=== PATIENT | male | born 1955 | race Caucasian/White ===

== ENCOUNTER 2018-04-01 17:11 | Emergency (ER) | payer OTHER, SELFPAY ==
[2018-04-01 17:12] VITALS: BP 157/91; PULSE 51; RESP 17; TEMP 36.2; O2SAT 98; BMI 25.8
--- NOTE | 2018-04-01 17:30 | RAD_ITS ---
STUDY: X-RAY - RIGHT SHOULDER REASON FOR EXAM: Male, 62 years old. Fall. Pain. TECHNIQUE: 2 view(s) of the shoulder. COMPARISON: None. FINDINGS: Normal glenohumeral articulation. Normal acromioclavicular joint. Normal acromion. Normal humeral head and visualized proximal humerus. There is periarticular soft tissue calcification consistent with a calcific tendinitis. There is no demonstrated fracture. Normal visualized pulmonary apex. RAD/Shoulder min 2 Views IMPRESSION: No acute abnormality. Calcific tendinitis. Electronically Signed: Antonio Crespo MD at 18:00 EST , Service support ,
--- NOTE | 2018-04-01 17:45 | RAD_ITS ---
STUDY: X-RAY - RIGHT ELBOW REASON FOR EXAM: Male, 62 years old. Fall. Right arm pain. TECHNIQUE: 3 view(s) of the elbow. COMPARISON: None. FINDINGS: Technically Limited examination-no true lateral view. No gross fracture or dislocation. Effusion cannot be excluded. No gross arthrosis. RAD/Elbow min 3 Views IMPRESSION: Limited by the absence of a true lateral view. No gross fracture or dislocation seen. Electronically Signed: Antonio Crespo MD at 18:02 EST , Service support ,
--- NOTE | 2018-04-01 19:03 | ED.DCSUM_ITS ---
- ER Visit Summary Date of Service: 04/01/18 Chief Complaint: Fall History of Present Illness: The patient is a 62 M presenting for evaluation secondary to a fall. Patient reports that he suffered a mechanical fall in the parking lot today where he landed on his elbow and struck his face against the ground. Denies loss of consciousness. Patient is not on any sort of anticoagulants. Denies any visual changes numbness weakness nausea or vomiting. He complains of pain in his right elbow and right shoulder. Review of systems otherwise negative. Physical Examination: Primary survey: Airway is patent, breath sounds equal bilateral, central peripheral pulses 2+ and symmetric, GCS 15 out of 15. Vitals within normal limits. Secondary survey: General: Well-nourished well-developed no acute distress Head: Normocephalic atraumatic Eyes: PERRLA, EOMI ENT: TMs clear no hemotympanum no drainage Neck: Nontender full range of motion, no step-offs noted Heart: Regular rate and rhythm no murmurs Lungs: Respirations nondistressed, lung sounds clear to auscultation bilaterally, chest nontender, normal chest excursion bilaterally Abdomen: Soft nontender nondistended normal bowel sounds no palpable abdominal masses Back: Nontender no step-offs noted Extremities: Skin tear noted on the right elbow with a mild amount of swelling. Normal range of motion of the elbow. Distal pulses normal distal sensation. No pain with palpation of the shoulder, but pain with range of motion of the right shoulder. No evidence of laxity of the rotator cuff. No significant joint effusion noted. Skin: Normal color no trauma Neuro: Alert and oriented ?4, GCS 15 out of 15, no lateralizing neurological deficits. Test Results: Right shoulder and elbow x-rays were found to be negative Emergency Department Course and Treatment: Patient presented secondary to a skin tear and a elbow and shoulder injury. Skin tear does not require laceration repair. This was dressed. Patient's tetanus is up-to-date already. X-rays are negative. Patient was placed in a sling for comfort, and was recommended on range of motion exercises and NSAIDs for pain Disposition: Discharge Impression: 1. Right shoulder strain 2. Right elbow skin tear This note was generated with [employer] dictation software. It may contain incorrect words, spelling, and punctuation that were not noted in review of the chart prior to signing ED Disposition - Plan for ED Patient: Disposition: Home or Assisted Living Chief Complaint: Upper Extremity Injury Diagnosis: Right shoulder strain Instructions: ED Sprain Shoulder Referrals: [facility]YSIC[facility]ANS] - As Needed
== END 2018-04-01 19:05 | disposition home or self-care (01) ==
PROVIDERS: Emergency Provider Emergency Medicine; Family Provider Family Medicine; PCP Family Medicine
DX: S46.911A Strain of unspecified muscle, fascia and tendon at shoulder and upper arm level, right arm, initial encounter (principal); S51.011A Laceration without foreign body of right elbow, initial encounter; Y92.481 Parking lot as the place of occurrence of the external cause; W18.30XA Fall on same level, unspecified, initial encounter; Y99.9 Unspecified external cause status; K21.9 Gastro-esophageal reflux disease without esophagitis
CPT/HCPCS: 73030; 73080; 99283

== ENCOUNTER → 2018-05-25 15:57 | Outpatient (CLI) | payer OTHER, SELFPAY ==
--- NOTE | 2018-05-25 16:02 | EKG12_ITS ---
Test Reason : PREOP Blood Pressure : / mmHG Vent. Rate : 057 BPM Atrial Rate : 057 BPM P-R Int : 156 ms QRS Dur : 080 ms QT Int : 442 ms P-R-T Axes : 044 -08 038 degrees QTc Int : 430 ms Sinus bradycardia Minimal voltage criteria for LVH, may be normal variant Borderline ECG Confirmed by DARIANA MEDINA, LEON ([id number]), technical writer and editor PASTOR PEARCE ([id number]) on 05/27/2018 3:38:19 PM Referred By: Prudence Gomes Confirmed By:LEON WESTBROOK MD
== END ==
PROVIDERS: Family Provider Family Medicine; PCP Family Medicine; Referring Provider Physician Assistant; Visit Provider Physician Assistant
DX: Z01.810 Encounter for preprocedural cardiovascular examination (principal)
CPT/HCPCS: 93005

== ENCOUNTER 2018-08-26 11:23 | Emergency (ER) | payer OTHER, SELFPAY ==
[2018-08-26 11:24] VITALS: BP 138/91; PULSE 66; RESP 20; TEMP 36.6; O2SAT 99; BMI 25.8
--- NOTE | 2018-08-26 11:44 | EKG12_ITS ---
Test Reason : CHEST OTHER Blood Pressure : / mmHG Vent. Rate : 057 BPM Atrial Rate : 057 BPM P-R Int : 148 ms QRS Dur : 074 ms QT Int : 444 ms P-R-T Axes : 024 -11 029 degrees QTc Int : 432 ms Sinus bradycardia Minimal voltage criteria for LVH, may be normal variant Borderline ECG Confirmed by DARIANA MEDINA, LEON ([id number]), magazine editor MYNOR PRAKASH ([id number]) on 08/30/2018 1:37:41 PM Referred By: CAIT Confirmed By:LEON WESTBROOK MD
--- NOTE | 2018-08-26 11:45 | CT_ITS ---
STUDY: CTA CHEST REASON FOR EXAM: Male, 63 years old. Left-sided chest pain RADIATION DOSAGE (If Supplied By Facility): CTDIvol = ( 10.42 ) mGy, DLP = ( 509.93 ) mGycm TECHNIQUE: The examination was performed with the intravenous administration of 75mL IV Isovue 370. Post-processing of the angiographic images was performed, with multiplanar reformation and 3D reconstruction. Individualized dose optimization techniques were used for this CT. COMPARISON: None. FINDINGS: Normal enhancement of the main pulmonary artery and right and left pulmonary arteries. Normal enhancement of the bilateral peripheral pulmonary arteries. There is no demonstrated pulmonary embolism. Normal thoracic aorta and visualized great vessels. There is no demonstrated aortic dissection. Normal heart and pericardium. Normal mediastinum. Normal hilar regions. Normal visualized trachea and bronchi. The lungs are well expanded. Normal pulmonary parenchyma. Normal pleura. Normal chest wall structures. There are degenerative changes of thoracic spine. Normal visualized upper abdomen. CT/CTA Chest W/WO Contrast IMPRESSION: Normal CTA chest examination, without a demonstrated pulmonary embolism or arterial dissection. Electronically Signed: Jas Lima DO at 13:15 EDT Tel , Service support ,
[2018-08-26 12:17] LABS: Absolute Lymphocyte Count 1.23 X10^3/ul (0.83-4.51); Absolute Neutrophil Count 3.9 X10^3/uL (2.0-7.7); Basophil# 0.03 X10^3/uL; Basophil% 0.5 % (0-1); Eosinophil# 0.08 X10^3/uL; Eosinophils% 1.4 % (0-5); Hematocrit 42.2 % (40-54); Hemoglobin 14.4 g/dl (13.0-16.5); Lymphocyte # 1.23 X10^3/ul (4.0); Lymphocyte % 21.8 % (19-41); Mean Corp Hgb Conc 34.1 g/gl (32-36); Mean Corpuscular Hgb 31.9 pg (27.0-32.0); Mean Corpuscular Volume 93.4 fL (80-94); Mean Platelet Vol. 9.5 fl (6.2-12.0); Monocyte# 0.38 X10^3/uL; Monocyte% 6.7 % (0-10); Neutrophil # 3.91 X10^3/uL (2.7-7.7); Neutrophil % 69.4 % (47-70); Platelet Count 217 K/mm3 (150-450); RBC Distribution Width CV 12.9 % (11.6-14.6); RBC Distribution Width SD 43.8 fl (35.1-43.9); Red Blood Count 4.52 M/mm3 (4.6-6.2); White Blood Count 5.6 K/mm3 (4.4-11.0)
[2018-08-26 12:18] LABS: POSITIVE COUNT NO; POSITIVE DIFFERENTIAL NO; POSITIVE MORPHOLOGY NO
[2018-08-26 12:20] LABS: Prothrombin Time (Protime)PT. 12.8 SECONDS (11.7-14.9)
[2018-08-26] MEDS: Morphine 4 MG/ML Syringe IV (12:20)
[2018-08-26] MEDS: Ondansetron 4 MG/2 ML Vial IV (12:20)
[2018-08-26 12:28] LABS: Anion Gap 5 (5-15); BUN 17 mg/dL (7-18); BUN/Creat Ratio 19.3 RATIO (10-20); Calcium,Total 8.7 mg/dL (8.5-10.1); Chloride 108 mmol/L (98-107); Creatinine, Serum 0.88 mg/dL (0.70-1.30); EST Glomerular Filtration Rate 92 mL/min (>60); Est Glom Filt Rate - Afr Amer 112 mL/min (>60); Estimated Creatinine Clearance 82.05 ml/min; Glucose 96 mg/dL (74-106); Potassium 4.2 mmol/L (3.5-5.1); Sodium Level 139 mmol/L (136-145)
--- NOTE | 2018-08-26 13:33 | ED.VISSUMM ---
- ER Visit Summary Date of Service: 08/26/18 Chief Complaint: Chest pain History of Present Illness: The patient is a 63 M who presents with chest pain. Is been present for 3 days. He complains of sharp left lower chest pain. This is worse with breathing palpation coughing or hiccups. He denies shortness of breath. No fevers nausea or vomiting. He did have rotator cuff surgery 11 weeks ago. He denies other medical history. Physical Examination: Afebrile vitals normal Moist mucous membranes Heart regular rate and rhythm Lungs are clear he does have left lower lateral chest tenderness Abdomen soft Alert Test Results: EKG shows sinus rhythm at a rate of 57. CBC BMP unremarkable. Troponin negative. INR normal at 1.0. CTA of the chest is normal. Emergency Department Course and Treatment: Given patient's history of rotator cuff surgery within the last few months and sharp pleuritic chest pain my big concern was for pulmonary embolism. CTA as above is negative. His labs are otherwise unremarkable and he has normal vitals. Therefore this most likely chest wall pain. He was advised on supportive care. He was discharged. Treatment Plan: [] Disposition: Discharge Impression: Chest wall pain This note was generated with [employer] dictation software. It may contain incorrect words, spelling, and punctuation that were not noted in review of the chart prior to signing ED Disposition - Plan for ED Patient: Referrals: Iglesia Chun MD [Primary Care Provider] -
--- NOTE | 2018-08-26 13:35 | ED.DEP ---
ED Disposition - Plan for ED Patient: Instructions: ED Chest Pain Atypical Unkn Cause Referrals: Iglesia Chun MD [Primary Care Provider] -
[2018-08-26 13:49] VITALS: BP 121/73; PULSE 61; RESP 18; O2SAT 100
== END 2018-08-26 13:53 | disposition home or self-care (01) ==
PROVIDERS: Emergency Provider Emergency Medicine; Family Provider Family Medicine; PCP Family Medicine
DX: R07.89 Other chest pain (principal)
CPT/HCPCS: 71275; 80048; 84484; 85025; 85610; 93005; 96374; 96375; 99284; Q9967; A4216; J2405

== ENCOUNTER → 2019-04-29 07:52 | Outpatient (CLI) | payer OTHER, SELFPAY ==
--- NOTE | 2019-04-29 08:03 | MRI_ITS ---
STUDY: MRI BRAIN WITH AND WITHOUT CONTRAST REASON FOR EXAM: Male, 63 years old. Tinnitus, HEADACHES TECHNIQUE: Standardized multiplanar fat and water weighted pulse sequences were obtained. IV 15 DOTAREM was administered for the contrast portion of the examination. COMPARISON: None. FINDINGS: There is no intracranial mass, mass effect or midline shift. No enhancing lesion. No obvious hemorrhage. No territorial infarct or acute ischemia. Normal size of the ventricles and extra-axial spaces for the patient''s age. Normal white matter tracts of the supratentorial brain. There is no extra-axial fluid accumulation. There is no enhancing intra-axial or extra-axial abnormality. Normal sella turcica, pituitary gland, infundibular stalk, optic chiasm and hypothalamus. Normal basal cisterns. Normal bilateral temporal bones. Normal bilateral internal auditory canals. No demonstrated orbital abnormality, within the constraints of a routine brain study. Normal visualized paranasal sinuses. Normal calvarium and skull base. Normal visualized soft tissue structures. MRI/Brain W/WO Contrast IMPRESSION: Normal unenhanced and enhanced MRI of the brain. Electronically Signed: Elina Singletary MD at 21:10 EST Tel , Service support ,
[2019-04-29 11:55] LABS: EGFR FINGERSTICK > 60.0000 mL/min (>60)
== END ==
PROVIDERS: Family Provider Family Medicine; PCP Family Medicine; Referring Provider Otolaryngology; Visit Provider Otolaryngology
DX: H93.19 Tinnitus, unspecified ear (principal); R51 Headache
CPT/HCPCS: 70553; A9575

== ENCOUNTER → 2020-04-03 08:21 | Outpatient (CLI) | payer MEDICARE, OTHER, SELFPAY ==
--- NOTE | 2020-04-03 08:25 | EKG12_ITS ---
Test Reason : PRE OP Blood Pressure : / mmHG Vent. Rate : 070 BPM Atrial Rate : 070 BPM P-R Int : 146 ms QRS Dur : 072 ms QT Int : 402 ms P-R-T Axes : 054 008 065 degrees QTc Int : 434 ms Normal sinus rhythm Normal ECG Confirmed by CESAR MEDINA, JULIO ([id number]), editor & co founder MYNOR PRAKASH ([id number]) on 04/04/2020 11:20:38 AM Referred By: Bandar Norwood Confirmed By:JULIO GUERRERO MD
[2020-04-03 09:15] LABS: Hematocrit 40.4 % (40-54); Hemoglobin 13.4 g/dL (13.0-16.5); Mean Corp Hgb Conc 33.2 g/dL (32-36); Mean Corpuscular Hgb 31.8 pg (27.0-32.0); Mean Corpuscular Volume 95.7 fL (80-94); Mean Platelet Vol. 9.8 fl (6.2-12.0); Platelet Count 215 K/mm3 (150-450); RBC Distribution Width CV 12.6 % (11.6-14.6); Red Blood Count 4.22 M/mm3 (4.6-6.2); White Blood Count 4.6 K/mm3 (4.4-11.0)
[2020-04-03 09:44] LABS: Anion Gap 5 (5-15); BUN 16 mg/dL (7-18); BUN/Creat Ratio 16.1 RATIO (10-20); Calcium,Total 9.1 mg/dL (8.5-10.1); Chloride 108 mmol/L (98-107); EST Glomerular Filtration Rate 80 mL/min (>60); Est Glom Filt Rate - Afr Amer 97 mL/min (>60); Glucose 113 mg/dL (74-106); Potassium 4.1 mmol/L (3.5-5.1); Sodium Level 140 mmol/L (136-145)
== END ==
PROVIDERS: PCP Family Medicine; Referring Provider Orthopaedic Surgery; Visit Provider Orthopaedic Surgery
DX: Z01.818 Encounter for other preprocedural examination (principal); I10 Essential (primary) hypertension; Z79.899 Other long term (current) drug therapy; Z11.59 Encounter for screening for other viral diseases
CPT/HCPCS: 36415; 80048; 85027; 87635; 93005; C9803; U0003

== ENCOUNTER → 2020-04-05 08:01 | Outpatient (CLI) | payer MEDICARE, OTHER, SELFPAY ==
[2020-04-05 08:59] LABS: Glucose 107 mg/dL (74-106)
== END ==
PROVIDERS: PCP Family Medicine; Referring Provider Orthopaedic Surgery; Visit Provider Orthopaedic Surgery
DX: Z01.818 Encounter for other preprocedural examination (principal); R73.01 Impaired fasting glucose
CPT/HCPCS: 36415; 82947

== ENCOUNTER 2020-10-11 13:03 | Emergency (ER) | payer MEDICARE, OTHER, SELFPAY ==
[2020-10-11 13:05] VITALS: BP 158/82; PULSE 61; RESP 18; TEMP 36.6; O2SAT 96; BMI 26.6
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
[2020-10-11] MEDS: HYDROcodone Bitartrate/Apap 5/325 Tablet PO (14:07)
[2020-10-11 15:21] VITALS: BP 141/71; PULSE 75; RESP 18; O2SAT 96
== END 2020-10-11 15:21 | disposition home or self-care (01) ==
PROVIDERS: Emergency Provider Emergency Medicine; PCP Family Medicine
DX: S20.219A Contusion of unspecified front wall of thorax, initial encounter (principal); V89.2XXA Person injured in unspecified motor-vehicle accident, traffic, initial encounter; Z79.899 Other long term (current) drug therapy
CPT/HCPCS: 71046; 71100; 99283

== ENCOUNTER 2021-08-24 10:47 | Emergency (ER) | payer MEDICARE, OTHER, SELFPAY ==
[2021-08-24 10:48] VITALS: BP 143/85; PULSE 84; RESP 16; TEMP 36.7; O2SAT 97; BMI 28.2
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
--- NOTE | 2021-08-24 11:10 | RAD_ITS ---
STUDY: X-RAY - RIGHT SHOULDER REASON FOR EXAM: Male, 66 years old. Trauma TECHNIQUE: 2 view(s) of the shoulder. COMPARISON: April 01, 2018 right shoulder x-ray FINDINGS: There is mild degenerative arthrosis of the glenohumeral articulation. Normal acromioclavicular joint. Normal acromion. Normal humeral head and visualized proximal humerus. The soft tissue structures are unremarkable. Normal visualized pulmonary apex. RAD/Shoulder min 2 Views IMPRESSION: 2 view study. No visualized fracture. Electronically Signed: Kelsea Dodd MD at 11:48 EDT Reading Location ID and State: [facility] / [place] Tel , Service support ,
== END 2021-08-24 12:26 | disposition home or self-care (01) ==
PROVIDERS: Emergency Provider Emergency Medicine; PCP Family Medicine; Visit Provider Emergency Medicine
DX: S06.9X9A Unspecified intracranial injury with loss of consciousness of unspecified duration, initial encounter (principal); S80.211A Abrasion, right knee, initial encounter; S40.011A Contusion of right shoulder, initial encounter; V19.69XA Unspecified pedal cyclist injured in collision with other motor vehicles in traffic accident, initial encounter; Y93.55 Activity, bike riding; Y99.9 Unspecified external cause status; Y92.9 Unspecified place or not applicable; K21.9 Gastro-esophageal reflux disease without esophagitis; Z79.899 Other long term (current) drug therapy; F98.8 Other specified behavioral and emotional disorders with onset usually occurring in childhood and adolescence
CPT/HCPCS: 70450; 72125; 73030; 99284

== ENCOUNTER → 2021-12-24 | Outpatient (CLI) | payer MEDICARE, OTHER, SELFPAY ==
[2021-12-24 10:37] LABS: Anion Gap 6 (5-15); BUN 15 mg/dL (7-18); BUN/Creat Ratio 16.8 RATIO (10-20); Chloride 109 mmol/L (98-107); Cholesterol 171 mg/dL (200); Creatinine, Serum 0.89 mg/dL (0.70-1.30); EST Glomerular Filtration Rate 90 mL/min (>60); Est Glom Filt Rate - Afr Amer 109 mL/min (>60); Glucose 101 mg/dL (74-106); High Density Lipoprotein 76 mg/dL; PSA,Total - Annual Screen 0.74 ng/mL (0.00-4.00); Potassium 3.6 mmol/L (3.5-5.1); Sodium Level 142 mmol/L (136-145); Triglycerides 58 mg/dL; Very Low Density Lipoprotein 12 mg/dL (5-40)
== END | disposition home or self-care (01) ==
LOC: MFPLAB 08:48
PROVIDERS: PCP Family Medicine; Visit Provider Family Medicine
DX: R07.89 Other chest pain (principal); Z13.1 Encounter for screening for diabetes mellitus; Z13.220 Encounter for screening for lipoid disorders; Z12.5 Encounter for screening for malignant neoplasm of prostate
CPT/HCPCS: 36415; 80048; 80061; 84153; G0103

== ENCOUNTER 2022-03-18 07:36 | Day surgery (SDC) | payer MEDICARE, OTHER, SELFPAY ==
--- NOTE | 2022-03-17 08:54 | EKG12_ITS ---
Test Reason : PREOP Blood Pressure : / mmHG Vent. Rate : 055 BPM Atrial Rate : 055 BPM P-R Int : 148 ms QRS Dur : 072 ms QT Int : 462 ms P-R-T Axes : 066 025 076 degrees QTc Int : 441 ms Sinus bradycardia Otherwise normal ECG Confirmed by DARIANA MEDINA, LEON ([id number]), senior editor MYNOR PRAKASH ([id number]) on 03/18/2022 9:07:55 AM Referred By: Chito Doran Confirmed By:LEON WESTBROOK MD
[2022-03-17 09:43] LABS: Hematocrit 42.4 % (40-54); Hemoglobin 13.9 g/dL (13.0-16.5); Mean Corp Hgb Conc 32.8 g/dL (32-36); Mean Corpuscular Hgb 31.7 pg (27.0-32.0); Mean Corpuscular Volume 96.8 fL (80-94); Mean Platelet Vol. 9.7 fl (6.2-12.0); Platelet Count 169 K/mm3 (150-450); RBC Distribution Width SD 46.5 fl (35.1-43.9); Red Blood Count 4.38 M/mm3 (4.6-6.2); White Blood Count 4.9 K/mm3 (4.4-11.0)
[2022-03-17 10:10] LABS: Anion Gap 3 (5-15); BUN 18 mg/dL (7-18); BUN/Creat Ratio 17.8 RATIO (10-20); Calcium,Total 9.2 mg/dL (8.5-10.1); Chloride 109 mmol/L (98-107); Creatinine, Serum 1.01 mg/dL (0.70-1.30); EST Glomerular Filtration Rate 78 mL/min (>60); Est Glom Filt Rate - Afr Amer 95 mL/min (>60); Glucose 104 mg/dL (74-106); Potassium 4.3 mmol/L (3.5-5.1); Sodium Level 142 mmol/L (136-145)
[2022-03-18] VITALS (10 sets, daily range): BP systolic 105–123; BP diastolic 55–72; PULSE 39–56; RESP 15–18; TEMP 36.2–36.8; O2SAT 95–100; BMI 25.9
[2022-03-18] MEDS: Lactated Ringers 1,000 ML 15 ML IV (07:45)
--- NOTE | 2022-03-18 09:13 | HP.PCM_ITS ---
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 Chito Doran MD) ADD (attention deficit disorder) Chronic GERD GERD (gastroesophageal reflux disease) Surgical History?(Updated 08/24/21 @ 10:59 by Saritha Huitron) History of Achilles tendon repair History of arthroscopic knee surgery History of shoulder surgery History of tonsillectomy Family History?(Updated 03/12/22 @ 14:08 by Suyapa Hampton) Mother Heart diseaseFather Heart disease CVA (cerebral vascular accident) Social History?(Updated 03/12/22 @ 14:08 by Suyapa Hampton) Smoking Status:? Never smoker alcohol intake:? never substance use type:? does not use HPI HPI HPI: 66-year-old gentleman is referred by Dr Mikhail Bonner for surgical consultation regarding a left inguinal hernia.? A written copy of my surgical consult recommendations will return to him.? It is of note that the patient does enjoy running and biking for exercise.? He also does weightlifting.? He is very physically active.? He states that the end of last month he ran a marathon.? 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 It was subsequent to that that he felt pain and a bulge in the left groin.? He is able to reduce this area but it does take some effort he has to move the tissue laterally and then inward.? It is quite uncomfortable.? 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 He states that this does bulge and is tender and that has the lie supine and reduce it. He infrequently has nocturia.? He has had no significant weight change.? He remains very physically active.? He has not any previous hernia repairs ROS General General: No weight change, appetite, fatigue, colon cancer, breast cancer or weakness HEENT HEENT: No difficulty swallowing, eye injury, eye surgery, swollen glands or hoarseness Endo Endocrine: No thyroid disease, diabetes mellitus, thyroid cancer, Hair loss, heat intolerance or cold intolerance Skin Skin: No rash or changing moles Breast Breast: No left breast lump, right breast lump, nipple discharge, breast pain, abnormal mammogram, abnormal US or breast enlargement Musc Musculoskeletal: No back problems, arthritis, rheumatoid arthritis, gout or joint pain Cardio Cardiovascular: No murmur, pacemaker, heart disease, atrial fibrillation, high blood pressure, heart attack, heart stent, palpitations, shortness of breat with exertion or chest pain Psych Psychiatric: No depression, anxiety or hearing voices Resp Respiratory: No shortness of breath, No sleep apnea, No cough, No COPD, No asthma, No emphysema and No wheezing Gastro Gastrointestinal: Yes abdominal pain, No nausea or vomiting, No diarrhea, Yes constipation, No blood in stool, Yes acid reflux, No hemorrhoids, No ulcers, No gallbladder problem and No black,tarry stools Edgar Hematologic: No blood thinners, No blood disorders, No bleeding, No anemia and No blood clots Neuro Neurologic: No system reviewed and no additional complaints, except as documented, No as per HPI, No abnormal gait, No abnormal hearing, No abnormal movements, No abnormal speech, No behavioral changes, No burning sensations, No confusion, No convulsions, No disequilibrium, No dizziness, No localized weakness, No frequent falls, No headache(s), No lack of coordination, No loss of vision, No memory loss, No numbness, No other visual disturbances, No radicular pain, No restless legs, No sensory deficit, No syncope, No tingling, No tremor(s), No weakness and No other Exam Const General: cooperative, healthy appearing, comfortable and no acute distress Nutritional Appearance: average body habitus [facility] Head: normal to inspection Eyes General: appearance normal, both eyes and all related structures Neck Neck: normal visual inspection Carotids: normal carotid upstroke Chest Chest palpation & inspection: normal inspection of the chest Resp Effort & Inspection: normal respiratory effort Auscultation: clear to auscultation bilaterally Cardio Rate: regular rate and bradycardic Rhythm: regular rhythm GI Palpation: soft and no hepatosplenomegaly Auscultation: normal bowel sounds Other: Indirect left inguinal hernia which is mildly tender but with the patient's supine it is reducible.? Testicles are descended bilaterally.? Indirect defect on the right also noted but easily reducible. Musc Cervical Spine: normal cervical lordosis Skin General: no rashes or lesions noted Neuro General: patient alert, patient awake and patient oriented x3 Extrem General: no calf tenderness Psych Appearance: grossly normal Assessment and Plan Assessment and Plan (1) Inguinal hernia bilateral, non-recurrent: ?Status:?Acute ?Plan: Bilateral inguinal hernias much more symptomatic on the left than the right.? Extraordinarily physically active gentleman. I propose for him a laparoscopic bilateral inguinal hernia repair with mesh.? In extensive detail I have discussed with him technique, benefit, risk, alternatives.? We discussed the weight of the mesh.? We discussed the type of repair.? We did discuss potential for recurrence.? Discussed mesh neuralgia.? He is aware that there are absolutely no guarantees of success.? He is aware that there will be a period of time where he absolutely must allow for resolution and healing. We will initiate him on tamsulosin 0.4 mg nightly today and preparation for the procedure in hopes of avoiding postoperative urinary retention. He has had an opportunity to ask and have questions answered.? We will schedule and expedite his care as his request. I appreciate the opportunity of assisting with the surgical care Copy: Dr. Sam Doran M.D., F.A.C.S. I have examined the patient and the H&P has been reviewed. There are no clinical changes since date of exam. Chito Doran M.D., F.A.C.S.
--- NOTE | 2022-03-18 09:14 | DCINST_ITS ---
Discharge Instructions Procedure General Surgery Diet Discharge Diet: Light diet - advance as tolerated (if you have questions about your diet instructions, please talk to you doctor.) Activity Discharge Activity: May Not Drive (for 3-5 days or while taking narcotic pain medicine.) May shower in (days): 1 Lifting Restrictions: 10 pounds Dressing / Incision Call your doctor if your incision/area has: Continuous Slow Oozing, Sudden Increased Bleeding, Increased Pain/ Swelling, Increased Redness and Foul Smelling Discharge Call your doctor if you observe: Fever of 101 or Higher Suture Line Care: Avoid Pulling/Pushing and Avoid Pinching/Bending Additional Dressing/Incision Instructions:: Change or remove dressing in 4 days. Leave steri-strips in place for 1 week. Follow Up Care Please Follow Up With: Chito Doran MD When: Call [phone] to make an appointment to be seen in about 10 days. Test Results: Test results from this visit will be discussed in further detail at your follow- up appointment, if applicable. Discharge Plan Admission Attending Provider: Chito Doran Primary Care Provider: Iglesia Chun Discharge Orders/Prescriptions Prescriptions: No Action Centrum Silver Ultra Men's 300-600-300 mcg tablet 1 tab PO DAILY tamsulosin [Flomax] 0.4 mg capsule 0.4 mg PO QHS Qty: 30 1RF methylphenidate HCl 10 MG tablet 10 mg PO DAILY Label Comments: TAKE ONE TABLET BY MOUTH TWICE DAILY omeprazole 20 mg capsule,delayed release(DR/EC) 40 mg PO BID Label Comments: TAKE ONE CAPSULE BY MOUTH DAILY prazosin 5 mg capsule 10 mg PO QHS Referrals / Follow Up: Iglesia Chun MD [Primary Care Provider] - Disposition Disposition (needs filled in before D/C Order can be placed): Home, Self Care
[2022-03-18] MEDS: Cefazolin 2 GM in 0.9% Normal Saline 100 ML IV (09:52)
[2022-03-18] MEDS: Bupivacaine 0.25% 30 ML Vial (10:12)
--- NOTE | 2022-03-18 11:46 | OP.PCM_ITS ---
Report of Operation Date of Procedure: 03/18/22 Pre-Operative Diagnosis: Bilateral inguinal hernias Post-Operative Diagnosis: Indirect sliding left inguinal hernia lot [id number], reference [id number], expiry date 07/21/2026. Left Bard 3D max extra-large Indirect right inguinal hernia; right Bard 3D max large mesh, lot [id number], reference [id number], expiry date 06/23/2026 Surgery/Procedure Performed:: Laparoscopic bilateral inguinal herniorrhaphies Description of Surgical Findings:: Timeout and informed consent was obtained. 66-year-old gentleman was taken to the operating placed upon the table underwent general endotracheal ovation esthesia. Demonstrated prepped draped. Ancef 2 g were given intravenously. 0.25% Marcaine was used as local anesthetic. Skin sites were. Excised. Throughout the procedure a total of 30 cc was used. A vertical infraumbilical incision was made holding sutures of 0 Vicryl placed varies needle inserted saline drop test performed the abdomen was insufflated with CO2 to a pressure of 10 mmHg pressure. 10 mm trocar inserted. 10 mm laparoscope inserted. In the left scopic visualization a 5 mm port was placed in the left lower quadrant. There were adhesions of ascending colon to the right anterior abdominal wall. These had to be sharply released and transected with tk scissors. Having completely released that I now was able to place a 5 mm port in the right lower quadrant. Bilateral ileal inguinal nerve blocks were performed with the local under laparoscopic visualization. The peritoneum superior and lateral to the right internal ring was incised. Medially tediously and carefully the peritoneum was dissected free this was actually quite difficult due to the adherence to the cord structures. With sharp and blunt dissection I was able to get the peritoneum completely dissected free and the sac completely inverted. A similar process was performed on the left. It became apparent that there was a sliding left inguinal hernia involving the sigmoid colon. I was able to tedious ly and carefully get that all dissected free as well. Both of these dissections took a significant amount of time. Having achieved that I initially placed a Bard 3D max extra-large mesh on the left and secured laterally superiorly with secure strap. Good positioning was achieved and it slightly extended to the right of midline. I put a large Bard 3D max mesh on the right overlapped the previous mesh I secured it laterally superiorly and medially with secure strap. The 2 meshes overlapped behind the urinary bladder there appeared to be excellent coverage of the defect area is in good flap positioning of the mesh. The peritoneum was then approximated to itself with secure strap completely obliterating access to the mesh. Small mesentery area dissection involving the sigmoid colon was simply approximated with a Hem-o-poli clip. Throughout the procedure Hem-o-poli clips and use were needed for hemostasis. The abdomen was allowed to deflate of the CO2. Fascia at the umbilicus 5 minutes with 0 Vicryl [id number] suture. Skin edges approximated with 4 Monocryl subdermal stitches. Steri-Strips Telfa OpSite dressings applied. Sponge and instrument and needle counts were reported to the surgeon to be correct. Specimens none. Drains none. Blood loss minimal. Chito Doran M.D., F.A.C.S. Surgeon: Chito Doran Type of Anesthesia: General Anesthesiologist: Julian Blanchard
[2022-03-18] MEDS: HYDROcodone Bitartrate/Apap 5/325 Tablet PO (13:25)
== END 2022-03-18 17:20 | disposition home or self-care (01) ==
LOC: SDC 07:37 → AC 07:38
PROVIDERS: PCP Family Medicine; Referring Provider Surgery; Visit Provider Surgery
PROC: (CPT 49650; principal; 2022-03-18 09:15)
DX: K40.20 Bilateral inguinal hernia, without obstruction or gangrene, not specified as recurrent (principal); K21.9 Gastro-esophageal reflux disease without esophagitis; Z79.899 Other long term (current) drug therapy
CPT/HCPCS: 49650; 00840; 36415; 80048; 85027; 93005; J7120; C1781; J2405

== ENCOUNTER → 2023-03-24 | Outpatient (CLI) | payer MEDICARE, OTHER, SELFPAY ==
[2023-03-24 13:06] LABS: Anion Gap 6 (5-15); BUN 20 mg/dL (7-18); BUN/Creat Ratio 23.5 RATIO (10-20); Calcium,Total 8.9 mg/dL (8.5-10.1); Chloride 106 mmol/L (98-107); Cholesterol 213 mg/dL (200); Creatinine, Serum 0.85 mg/dL (0.70-1.30); EST Glomerular Filtration Rate 95 mL/min (>60); Est Glom Filt Rate - Afr Amer 115 mL/min (>60); Glucose 83 mg/dL (74-106); High Density Lipoprotein 88 mg/dL; PSA,Total - Annual Screen 0.73 ng/mL (0.00-4.00); Potassium 3.9 mmol/L (3.5-5.1); Sodium Level 141 mmol/L (136-145); Triglycerides 64 mg/dL; Very Low Density Lipoprotein 13 mg/dL (5-40)
== END | disposition home or self-care (01) ==
LOC: MFPLAB 10:21
PROVIDERS: PCP Family Medicine; Visit Provider Family Medicine
DX: Z12.5 Encounter for screening for malignant neoplasm of prostate (principal); Z13.1 Encounter for screening for diabetes mellitus; Z13.220 Encounter for screening for lipoid disorders; Z13.6 Encounter for screening for cardiovascular disorders
CPT/HCPCS: 36415; 80048; 80061; 84153; G0103

== ENCOUNTER → 2024-02-21 | Outpatient (CLI) | payer MEDICARE, OTHER, SELFPAY ==
[2024-02-21 12:28] LABS: Vitamin B12 899 pg/mL (211-911); Vitamin D,25 Hydroxy 38.3 ng/mL
[2024-02-21 12:43] LABS: Absolute Lymphocyte Count 1.05 X10^3/uL (0.83-4.51); Absolute Neutrophil Count 3.1 X10^3/uL (2.0-7.7); Basophil# 0.05 X10^3/uL; Basophil% 1.1 % (0-1); Eosinophil# 0.08 X10^3/uL; Eosinophils% 1.7 % (0-5); Hematocrit 43.7 % (40-54); Hemoglobin 14.8 g/dL (13.0-16.5); Lymphocyte # 1.05 X10^3/ul (0.83-4.51); Lymphocyte % 22.5 % (19-41); Mean Corp Hgb Conc 33.9 g/dL (32-36); Mean Corpuscular Hgb 32.4 pg (27.0-32.0); Mean Corpuscular Volume 95.6 fL (80-94); Mean Platelet Vol. 9.9 fl (6.2-12.0); Monocyte# 0.42 X10^3/uL; NRBC Flagged by Analyzer 0 % (0-5); Neutrophil # 3.05 X10^3/uL (2.7-7.7); Neutrophil % 65.3 % (47-70); Platelet Count 201 K/mm3 (150-450); RBC Distribution Width CV 12.6 % (11.6-14.6); RBC Distribution Width SD 44.4 fl (35.1-43.9); Red Blood Count 4.57 M/mm3 (4.6-6.2); White Blood Count 4.7 K/mm3 (4.4-11.0)
[2024-02-21 12:48] LABS: Erythrocyte Sedimentation Rate 2 mm/hr (0-20)
[2024-02-21 13:09] LABS: ALB/GLOB Ratio 1.3 RATIO (0.9-2.4); AST(SGOT) 23 U/L (15-37); Alanine Aminotransfer ALT/SGPT 30 U/L (16-61); Alkaline Phosphatase 52 U/L (45-117); Anion Gap 7 (5-15); BUN 18 mg/dL (7-18); BUN/Creat Ratio 17.5 RATIO (10-20); Calcium,Total 8.9 mg/dL (8.5-10.1); Chloride 106 mmol/L (98-107); Cholesterol 229 mg/dL (200); Creatinine, Serum 1.03 mg/dL (0.70-1.30); EST Glomerular Filtration Rate 76 mL/min (>60); Est Glom Filt Rate - Afr Amer 92 mL/min (>60); Ferritin 212 ng/mL (26-388); Glucose 98 mg/dL (74-106); High Density Lipoprotein 89 mg/dL; Iron 105 ug/dL (65-175); Potassium 3.9 mmol/L (3.5-5.1); Sodium Level 141 mmol/L (136-145); Triglycerides 76 mg/dL; Very Low Density Lipoprotein 15 mg/dL (5-40)
== END | disposition home or self-care (01) ==
LOC: MTLAB 09:42
PROVIDERS: PCP Family Medicine; Referring Provider Family Medicine; Visit Provider Family Medicine
DX: R53.83 Other fatigue (principal); R51.9 Headache, unspecified; Z13.220 Encounter for screening for lipoid disorders
CPT/HCPCS: 36415; 80053; 80061; 82306; 82607; 82728; 83540; 84403; 84443; 85025; 85652